=== PATIENT | female | born 1970 | race Caucasian/White ===

== ENCOUNTER → 2021-01-10 | Outpatient (CLI) | payer OTHER ==
[~2021-01-10] MED LIST: CYCL10TA9 PO; ESTROGEN GEL; MILN50TA6 PO; MTP25TSR PO; ZLP10T PO
== END ==
LOC: GIR 16:19
PROVIDERS: ATTEND Family Medicine
DX: Z01.89 Encounter for other specified special examinations (principal)
CPT/HCPCS: 84132

== ENCOUNTER 2021-04-19 19:27 | Emergency (ER) | payer BC, OTHER ==
[~2021-04-19] VITALS: Ht 160 cm; Wt 65.8 kg
--- NOTE | 2021-04-19 20:30 | ED Trauma-Multisystem ---
General Chief Complaint: Trauma-Non Activation Stated Complaint: HEAD INJURY Nursing Triage Note: PT FELL ONTO CONCRETE WHILE PLAYING WITH GRANDKIDS HITTING THE LEFT SIDE OF HEAD. Source of Information: Patient Exam Limitations: No Limitations History of Present Illness Date Seen by Provider: Apr 19, 2021 Time Seen by Provider: 19:33 Initial Comments 50-year-old female presents after a fall and head injury. Having difficulty speaking, stuttering and difficulty answering questions initially. No external bleeding, laceration and no obvious head or facial injury. Brought to ER by her who states she tripped and fell on a concrete slab tumbling and hitting her head. No loss of consciousness, dazed afterwards and he brought her to the ER where she was brought inside using a wheelchair. NO complaint of extremity pain, but states her tailbone is hurting. Allergies and Home Medications Allergies Coded Allergies: Codeine (Verified Allergy, Mild, 12/30/11) Egg (Verified Allergy, Mild, 12/30/11) Penicillins (Verified Allergy, Mild, 12/30/11) Uncoded Allergies: MUSHROOMS (Allergy, Mild, 12/30/11) Home Medications Cyclobenzaprine Hcl 10 Mg Tablet, 1 EACH PO Q8HR PRN FOR MUSCLE SPASMS Prescribed by: ERNESTINA APODACA on 12/30/11 1218 Metoprolol Succinate 25 Mg Tab.sr.24h, 1 EACH PO BID, (Reported) Milnacipran Hcl 50 Mg Tablet, 50 MG PO BID, (Reported) Zolpidem Tartrate 10 Mg Tab, 10 MG PO HS, (Reported) [Estrogen Gel] , 2 DAILY, (Reported) Patient Home Medication List Home Medication List Reviewed: Yes Review of Systems Review of Systems Constitutional: No chills, No dizziness, No fever; malaise Eyes: Denies Blindness, Denies Blurred Vision, Denies Inflammation, Denies Pain; Photophobia; Denies Vision Changes Ears: No Symptoms Reported Nose: No Symptoms Reported Mouth: No Symptoms Reported Throat: No Symptoms to Report Respiratory: No cough, No short of breath Cardiovascular: Denies Chest Pain, Denies Edema, Denies Irregular Heart Rate, Denies Syncope Gastrointestinal: No abdominal pain, No nausea, No vomiting Musculoskeletal: No back pain, No joint pain, No joint swelling, No muscle stiffness, No neck pain Skin: No change in color, No rash Psychiatric/Neurological: See HPI; Denies Anxiety, Denies Depressed; Headache; Denies Numbness, Denies Tingling, Denies Tonic Clonic Seizures, Denies Unable to Move Lower Ext, Denies Unable to Move Upper Ext, Denies Weakness Past Mtjdogq-Unjxhy-Spogyf Hx Past Med/Social Hx: Reviewed Nursing Past Med/Soc Hx Patient Social History Alcohol Use: Denies Use Smoking Status: Never a Smoker 2nd Hand Smoke Exposure: No Recent Infectious Disease Expo: No Recent Hopitalizations: No Seasonal Allergies Seasonal Allergies: Yes Past Medical History Surgeries: Yes Appendectomy, Section, Hysterectomy Respiratory: No Cardiac: No Neurological: Yes Seizure Disorder, Traumatic Brain Injury Genitourinary: No Gastrointestinal: Yes (GASTROPARESIS) Ulcer Musculoskeletal: Yes Fibromyalgia, Back Injury, Fractures Endocrine: No HEENT: Yes ("EXTREME DRY EYES, MOUTH, SKIN") Cancer: No Psychosocial: Yes Anxiety, Depression Integumentary: No Blood Disorders: No Physical Exam Vital Signs Vital Signs - First Documented 04/19/21 04/19/21 19:38 21:07 Temp 36.6 Pulse 75 Resp 22 B/P (MAP) 130/84 (99) Pulse Ox 97 O2 Delivery Room Air Height, Weight, BMI Height: '" Weight: lbs. oz. kg; 25.00 BMI Method:Stated General Appearance: WD/WN, Anxious Head: No Evidence of Injury, Tenderness (left frontal); No Active Bleeding, No Fleming's Sign, No Contusions, No Ecchymosis, No Lacerations, No Raccoon Eyes, No Swelling Eyes: Bilateral Eye Normal Inspection, Bilateral Eye PERRL, Bilateral Eye EOMI Ears, Nose, Throat: Hearing Grossly Normal, No Evidence of ENT Injury, No Dental Injury Neck: Full Range of Motion, Normal Inspection, Non Tender, Supple Cardiovascular: Regular Rate, Rhythm, No Edema, No JVD Respiratory: Chest Non Tender, Lungs Clear, Normal Breath Sounds, No Accessory Muscle Use Gastrointestinal: Normal Bowel Sounds, No Pulsatile Mass, Non Tender, Soft Back: Normal Inspection, No CVA Tenderness, No Vertebral Tenderness Extremity: Normal Capillary Refill, Normal Range of Motion, Non Tender Neurologic/Psychiatric: Alert, Oriented x3, No Motor/Sensory Deficits, cma II- XII Norm as Tested Skin: Normal Color, Warm/Dry Progress/Results/Core Measures Results/Orders My Orders Orders - ROVENSTINE,TIAGO L DO Ct Head Wo (04/19/21 19:51) Vital Signs/I&O 04/19/21 04/19/21 19:38 21:07 Temp 36.6 Pulse 75 78 Resp 22 17 B/P (MAP) 130/84 (99) 127/76 Pulse Ox 97 O2 Delivery Room Air Room Air Blood Pressure Mean: 99 Diagnostic Imaging Diagonstic Imaging: CT Comments EXAMINATION: CT brain without contrast, 04/19/2021. All CT scans use one or more of the following dose optimizing techniques: automated exposure control, MA and/or KvP adjustment based on patient size and exam type or iterative reconstruction. FINDINGS: There is a small linear hyperdensity within the extra-axial aspect of the left frontal parietal region which could represent a small subdural hematoma. No mass effect or midline shift. Within the right frontal parietal lobe, on image #16 of 32, there is a punctate hyperdensity which could represent a small intraparenchymal hemorrhage. No acute infarct. No hydrocephalus. No mass, mass effect or midline shift. No calvarial fracture. Paranasal sinuses and mastoid air cells are unremarkable. IMPRESSION: Possible small left subdural hematoma, as above, with a punctate questioned intraparenchymal hemorrhage in the right frontal parietal region. 24 hour follow-up recommended for reevaluation. Findings called to to the Emergency Room physician by Dr. Lowry on 04/19/2021 at 8:26 p.m. Dictated on workstation # [id number] Dict: 04/19/212018 Trans: 04/19/212030 [facility] [id number] Interpreted by: IVAN LOWRY MD Electronically signed by: Departure Impression Primary Impression: Subdural hematoma, acute Additional Impression: Closed head injury Qualified Codes: S09.90XA - Unspecified injury of head, initial encounter Disposition: 02 XFER SHT-TRM HOSP Condition: Stable Transfer Transfer Reason: Exceeds level of care Time Spoke to Accepting Phy: 20:35 Transfer Progress Notes called [facility]- spoke to Dr Elmo Bradley who accepts for ER - ER transfer Departure-Patient Inst. Referrals: NO,LOCAL PHYSICIAN (PCP/Family) Primary Care Physician TIAGO ZUÑIGA DO Apr 19, 2021 20:30
[2021-04-19 21:07] VITALS: BP 127/76
== END 2021-04-19 21:06 | disposition short-term general hospital (02) ==
LOC: EDUNIT# 19:27 → ER FS 19:30
DX: S09.90XA Unspecified injury of head, initial encounter (principal); Z87.820 Personal history of traumatic brain injury; W01.198A Fall on same level from slipping, tripping and stumbling with subsequent striking against other object, initial encounter
CPT/HCPCS: 70450

== ENCOUNTER 2022-07-25 05:25 | Emergency (ER) | payer BC ==
[~2022-07-25] VITALS: Ht 160 cm; Wt 74.8 kg
[2022-07-25 05:35] VITALS: BP 120/81
[2022-07-25] MEDS ORDERED: AZIT250T12 PO (05:47)
--- NOTE | 2022-07-25 05:48 | ED EENT ---
History of Present Illness General Stated Complaint: LEFT EAR PAIN Source: patient Exam Limitations: no limitations History of Present Illness Date Seen by Provider: Jul 25, 2022 Time Seen by Provider: 05:30 Initial Comments 51-year-old female with past medical history most notable for chronic pain, fibromyalgia, gastroparesis coming in due to left ear pain. It has been going on and for like its been stuffed up for the past couple of days. Pain started really last night which is severe, stabbing, constant, nothing really seems to make it better or worse. Took one of her hydrocodone 10 mg about an hour prior to arrival. Denies any fever, nausea, vomiting, diarrhea, weakness, numbness, vision changes, voice changes, difficulty swallowing, or any other concerns Allergies and Home Medications Allergies Coded Allergies: Codeine (Verified Allergy, Mild, 12/30/11) Egg (Verified Allergy, Mild, 12/30/11) Penicillins (Verified Allergy, Mild, 12/30/11) Uncoded Allergies: MUSHROOMS (Allergy, Mild, 12/30/11) Patient Home Medication List Home Medication List Reviewed: Yes Azithromycin (Azithromycin) 250 Mg Tablet, 250 MG PO UD Prescribed by: MONY BEST on 07/25/22 0547 Cyclobenzaprine Hcl (Cyclobenzaprine Hcl) 10 Mg Tablet, 1 EACH PO Q8HR PRN Prescribed by: ERNESTINA APODACA on 12/30/11 1218 Metoprolol Succinate (Toprol Xl 25MG) 25 Mg Tab.sr.24h, 1 EACH PO BID, (Reported) Entered as Reported by: PEDRO PABLO WOODWARD on 12/30/11 1108 Milnacipran Hcl (Savella) 50 Mg Tablet, 50 MG PO BID, (Reported) Entered as Reported by: PEDRO PABLO WOODWARD on 12/30/11 1108 Zolpidem Tartrate (Ambien 10 Mg) 10 Mg Tab, 10 MG PO HS, (Reported) Entered as Reported by: PEDRO PABLO WOODWARD on 12/30/11 110 [Estrogen Gel] , 2 DAILY, (Reported) Entered as Reported by: PEDRO PABLO WOODWARD on 12/30/11 1108 Review of Systems Review of Systems Constitutional: No fever Eyes: No Symptoms Reported Ears: See HPI Nose: no symptoms reported Mouth: no symptoms reported Throat: no symptoms reported Respiratory: no symptoms reported Cardiovascular: no symptoms reported Gastrointestinal: no symptoms reported Musculoskeletal: no symptoms reported Skin: no symptoms reported Neurological: No Symptoms Reported Hematologic/Lymphatic: No Symptoms Reported Immunological/Allergic: no symptoms reported All Other Systems Reviewed Negative Unless Noted: Yes Past Zhprlea-Ejflmq-Oxbiyq Hx Patient Social History Tobacco Use?: No Substance use?: No Alcohol Use?: No Seasonal Allergies Seasonal Allergies: Yes Past Medical History Surgeries: Yes Appendectomy, Section, Hysterectomy Respiratory: No Cardiac: No Neurological: Yes Seizure Disorder, Traumatic Brain Injury Genitourinary: No Gastrointestinal: Yes (GASTROPARESIS) Ulcer Musculoskeletal: Yes Fibromyalgia, Back Injury, Fractures Endocrine: No HEENT: Yes ("EXTREME DRY EYES, MOUTH, SKIN") Cancer: No Psychosocial: Yes Anxiety, Depression Integumentary: No Blood Disorders: No Physical Exam Height, Weight, BMI Height: '" Weight: lbs. oz. kg; 25.00 BMI Method:Stated General Appearance: WD/WN, no apparent distress Eyes: bilateral eye normal inspection Ears: right ear TM normal; left ear TM dull, left ear TM red, left ear TM bulging; bilateral ear auricle normal, bilateral ear canal normal Nose: normal inspection Mouth/Throat: normal mouth inspection, pharynx normal Neck: non-tender, full range of motion, supple, normal inspection Cardiovascular: regular rate, rhythm, no edema, no murmur Respiratory: chest non-tender, lungs clear, normal breath sounds, no respirator y distress, no accessory muscle use Gastrointestinal: normal bowel sounds, non tender, soft; No distended, No guarding, No rebound Neurologic/Psychiatric: no motor/sensory deficits, alert, normal mood/affect Skin: normal color, warm/dry Progress/Results/Core Measures Progress Progress Note : Progress Note 51-year-old female with above history coming in due to left ear pain. Left tympanic membrane appears dull, red, bulging. Likely is acute otitis media. Given her age is possibly viral, but given the severe pain will trial antibiotics. The patient states she is essentially "allergic to all antibiotics but a Z-Vamsi". Departure Impression Primary Impression: Otitis media Qualified Codes: H66.005 - Acute suppurative otitis media without spontaneous rupture of ear drum, recurrent, left ear Disposition: 01 HOME, SELF-CARE Condition: Stable Departure-Patient Inst. Decision time for Depature: 05:45 Referrals: NO,LOCAL PHYSICIAN (PCP/Family) Primary Care Physician Patient Instructions: Ear Infection ED Add. Discharge Instructions: You will be on antibiotics for the next week. Follow-up with your regular doctor in [place] if things are not improving after the next couple of days Scripts Azithromycin (Azithromycin) 250 Mg Tablet 250 MG PO UD, #6 TAB TAKE 2 TABLETS ON DAY ONE THEN TAKE 1 TABLET DAILY FOR FOUR MORE DAYS Prov: MONY BEST MD 07/25/22 MONY BEST MD Jul 25, 2022 05:48
== END 2022-07-25 05:50 | disposition home or self-care (01) ==
LOC: EDUNIT# 05:25 → ER FS 05:28
DX: H66.92 Otitis media, unspecified, left ear (principal); Z28.310 Unvaccinated for COVID-19
CPT/HCPCS: 99283

== ENCOUNTER 2022-09-24 03:35 | Emergency (ER) | payer BC ==
[~2022-09-24] VITALS: Ht 160 cm; Wt 74.9 kg
[~2022-09-24 03:35] MED LIST changes: +AZIT250T12 PO
--- NOTE | 2022-09-24 03:42 | ED General ---
General Stated Complaint: BODY ACHES History of Present Illness Date Seen by Provider: Sep 24, 2022 Time Seen by Provider: 03:42 Initial Comments 51-year-old female presents with generalized body aches. Patient has a history of "fibromyalgia" she reports that since yesterday around 9 she is just had all over body aches and gets to where she just hurts everywhere. Patient reports that anywhere you touch her hurts. That hurts so bad that her "legs just do not want to move" patient denies any fever, chills, vomiting, diarrhea, cough. Allergies and Home Medications Allergies Coded Allergies: Penicillins (Verified Allergy, Mild, 12/30/11) codeine (Verified Allergy, Mild, 12/30/11) egg (Verified Allergy, Mild, 12/30/11) NSAIDS (Non-Steroidal Anti-Inflamma (Unverified Adverse Reaction, Unknown, 09/24/22) Reports gastroparesis and cannot take morphine (Unverified Adverse Reaction, Unknown, Headache, 09/24/22) Patient reports Morphine intensifies all her headaches Uncoded Allergies: MUSHROOMS (Allergy, Mild, 12/30/11) Patient Home Medication List Home Medication List Reviewed: Yes Buspirone HCl (Buspirone HCl) 10 Mg Tablet, 20 MG PO BID, (Reported) Entered as Reported by: KARRI JAMES on 09/24/22432 Last Action: New Order Celecoxib (Celecoxib) 200 Mg Capsule, 200 MG PO DAILY, (Reported) Entered as Reported by: KARRI JAMES on 09/24/22432 Last Action: New Order Dextroamphetamine/Amphetamine (Amphetamine Salts 20 mg Tablet) 20 Mg Tablet, (Reported) Entered as Reported by: KARRI JAMES on 09/24/22432 Last Action: New Order Duloxetine HCl (Duloxetine HCl) 60 Mg Capsule.dr, 120 MG PO DAILY, (Reported) Entered as Reported by: KARRI JAMES on 09/24/22432 Last Action: New Order Hydrocodone/Acetaminophen (Hydrocodone-Acetamin 10-325 mg) 10 Mg-325 Mg Tablet, 1 TAB PO BID, (Reported) Entered as Reported by: KARRI JAMES on 09/24/22432 Last Action: New Order Potassium Chloride (Potassium Chloride) 10 Meq Tab.er.prt, 10 MEQ PO DAILY, (Reported) Entered as Reported by: KARRI JAMES on 09/24/22432 Last Action: New Order Prazosin HCl (Prazosin HCl) 2 Mg Capsule, 4 MG PO HS, (Reported) Entered as Reported by: KARRI JAMES on 09/24/22432 Last Action: New Order Spironolactone (Aldactone) 100 Mg Tablet, 100 MG PO DAILY, (Reported) Entered as Reported by: KARRI JAMES on 09/24/22432 Last Action: New Order Trazodone HCl (Trazodone HCl) 50 Mg Tablet, 50-100 MG PO HS, (Reported) Entered as Reported by: KARRI JAMES on 09/24/22432 Last Action: New Order Discontinued Medications Azithromycin (Azithromycin) 250 Mg Tablet, 250 MG PO UD Discontinued Reason: Referral/FU Appt-Addtl Prescribed by: MONY BEST on 07/25/22546 Last Action: Discontinued Cyclobenzaprine Hcl (Cyclobenzaprine Hcl) 10 Mg Tablet, 1 EACH PO Q8HR PRN Discontinued Reason: Referral/FU Appt-Addtl Prescribed by: ERNESTINA APODACA on 12/30/111217 Last Action: Discontinued Metoprolol Succinate (Toprol Xl 25MG) 25 Mg Tab.sr.24h, 1 EACH PO BID, (Reported) Discontinued Reason: Referral/FU Appt-Addtl Entered as Reported by: PEDRO PABLO WOODWARD on 12/30/111107 Last Action: Discontinued Milnacipran Hcl (Savella) 50 Mg Tablet, 50 MG PO BID, (Reported) Discontinued Reason: Referral/FU Appt-Addtl Entered as Reported by: PEDRO PABLO WOODWARD on 12/30/111107 Last Action: Discontinued Zolpidem Tartrate (Ambien 10 Mg) 10 Mg Tab, 10 MG PO HS, (Reported) Discontinued Reason: Referral/FU Appt-Addtl Entered as Reported by: PEDRO PABLO WOODWARD on 12/30/111108 Last Action: Discontinued [Estrogen Gel] , 2 DAILY, (Reported) Discontinued Reason: Referral/FU Appt-Addtl Entered as Reported by: PEDRO PABLO WOODWARD on 12/30/111107 Last Action: Discontinued Review of Systems Review of Systems Constitutional: see HPI; No chills, No fever; malaise EENTM: no symptoms reported Respiratory: no symptoms reported Cardiovascular: no symptoms reported Gastrointestinal: no symptoms reported Genitourinary: no symptoms reported Musculoskeletal: see HPI Skin: no symptoms reported Psychiatric/Neurological: No Symptoms Reported Past Dxtdnii-Xzvkof-Jqdeyo Hx Seasonal Allergies Seasonal Allergies: Yes Past Medical History Surgeries: Yes Appendectomy, Section, Hysterectomy Respiratory: No Cardiac: No Neurological: Yes Seizure Disorder, Traumatic Brain Injury Genitourinary: No Gastrointestinal: Yes (GASTROPARESIS) Ulcer Musculoskeletal: Yes Fibromyalgia, Back Injury, Fractures Endocrine: No HEENT: Yes ("EXTREME DRY EYES, MOUTH, SKIN") Cancer: No Psychosocial: Yes Anxiety, Depression Integumentary: No Blood Disorders: No Physical Exam Vital Signs Vital Signs - First Documented 09/24/22 03:40 Temp 37.4 Pulse 99 Resp 20 B/P (MAP) 106/73 (84) Pulse Ox 99 O2 Delivery Room Air Capillary Refill : Height, Weight, BMI Height: '" Weight: lbs. oz. kg; 29.00 BMI Method:Stated General Appearance: No Apparent Distress, Other (Patient complains of tenderness anywhere that she is touched.) HEENT: PERRL/EOMI, Moist Mucous Membranes Neck: Non Tender, Supple Respiratory: Lungs Clear, Normal Breath Sounds Cardiovascular: Regular Rate, Rhythm, No Edema Gastrointestinal: Soft Extremity: Normal Capillary Refill, Normal Range of Motion Neurologic/Psychiatric: Alert, rehab trainer II-XII Norm as Tested Skin: Normal Color, Warm/Dry Progress/Results/Core Measures Suspected Sepsis SIRS Temperature: Pulse: Respiratory Rate: Laboratory Tests 09/24/22 03:41: White Blood Count 8.9 Blood Pressure / Mean: Laboratory Tests 09/24/22 03:41: Creatinine 0.94, Platelet Count 314, Total Bilirubin 0.7 Results/Orders Lab Results Laboratory Tests Test 09/24/22 03:41 09/24/22 03:52 09/24/22 04:50 Range/Units White Blood Count 8.9 4.3-11.0 10^3/uL Red Blood Count 4.14 3.80-5.11 10^6/uL Hemoglobin 12.2 11.5-16.0 g/dL Hematocrit 37 35-52 % Mean Corpuscular Volume 88 80-99 fL Mean Corpuscular Hemoglobin 30 25-34 pg Mean Corpuscular Hemoglobin Concent 33 32-36 g/dL Red Cell Distribution Width 12.7 10.0-14.5 % Platelet Count 314 130-400 10^3/uL Mean Platelet Volume 9.0 9.0-12.2 fL Immature Granulocyte % (Auto) 0 % Neutrophils (%) (Auto) 82 H 42-75 % Lymphocytes (%) (Auto) 12 12-44 % Monocytes (%) (Auto) 5 0-12 % Eosinophils (%) (Auto) 0 0-10 % Basophils (%) (Auto) 0 0-10 % Neutrophils # (Auto) 7.3 1.8-7.8 10^3/uL Lymphocytes # (Auto) 1.1 1.0-4.0 10^3/uL Monocytes # (Auto) 0.4 0.0-1.0 10^3/uL Eosinophils # (Auto) 0.0 0.0-0.3 10^3/uL Basophils # (Auto) 0.0 0.0-0.1 10^3/uL Immature Granulocyte # (Auto) 0.0 0.0-0.1 10^3/uL Sodium Level 135 135-145 MMOL/L Potassium Level 4.4 3.6-5.0 MMOL/L Chloride Level 97 L 98-107 MMOL/L Carbon Dioxide Level 23 21-32 MMOL/L Anion Gap 15 H 5-14 MMOL/L Blood Urea Nitrogen 32 H 7-18 MG/DL Creatinine 0.94 0.60-1.30 MG/DL Estimat Glomerular Filtration Rate 74 BUN/Creatinine Ratio 34 Glucose Level 102 70-105 MG/DL Calcium Level 8.8 8.5-10.1 MG/DL Corrected Calcium 8.7 8.5-10.1 MG/DL Magnesium Level 2.2 1.6-2.4 MG/DL Total Bilirubin 0.7 0.1-1.0 MG/DL Aspartate Amino Transf (AST/SGOT) 15 5-34 U/L Alanine Aminotransferase (ALT/SGPT) 15 0-55 U/L Alkaline Phosphatase 70 40-136 U/L C-Reactive Protein 5.71 H <0.50 MG/DL Total Protein 6.6 6.4-8.2 GM/DL Albumin 4.1 3.2-4.5 GM/DL Influenza Type A (RT-PCR) Not Detected Not Detecte Influenza Type B (RT-PCR) Not Detected Not Detecte SARS-CoV-2 RNA (RT-PCR) Not Detected Not Detecte Urine Color YELLOW Urine Clarity SL CLOUDY Urine pH 6.0 5-9 Urine Specific Browning 1.020 1.016-1.022 Urine Protein NEGATIVE NEGATIVE Urine Glucose (UA) NEGATIVE NEGATIVE Urine Ketones NEGATIVE NEGATIVE Urine Nitrite NEGATIVE NEGATIVE Urine Bilirubin NEGATIVE NEGATIVE Urine Urobilinogen 0.2 < = 1.0 MG/DL Urine Leukocyte Esterase NEGATIVE NEGATIVE Urine RBC (Auto) NEGATIVE NEGATIVE Urine RBC 0-2 /HPF Urine WBC 0-2 /HPF Urine Squamous Epithelial Cells 5-10 /HPF Urine Crystals PRESENT H /LPF Urine Amorphous Sediment FEW KATIE URATES H /LPF Urine Bacteria FEW H /HPF Urine Casts PRESENT /LPF Urine Hyaline Casts 0-2 H /LPF Urine Mucus LARGE H /LPF Urine Culture Indicated NO Urine Opiates Screen POSITIVE H NEGATIVE Urine Oxycodone Screen NEGATIVE NEGATIVE Urine Methadone Screen NEGATIVE NEGATIVE Urine Propoxyphene Screen NEGATIVE NEGATIVE Urine Barbiturates Screen NEGATIVE NEGATIVE Ur Tricyclic Antidepressants Screen NEGATIVE NEGATIVE Urine Phencyclidine Screen NEGATIVE NEGATIVE Urine Amphetamines Screen POSITIVE H NEGATIVE Urine Methamphetamines Screen NEGATIVE NEGATIVE Urine Benzodiazepines Screen NEGATIVE NEGATIVE Urine Cocaine Screen NEGATIVE NEGATIVE Urine Cannabinoids Screen NEGATIVE NEGATIVE My Orders Orders - HUBBARD,PADMA L DO Cbc With Automated Diff (09/24/22 03:46) Comprehensive Metabolic Panel (09/24/22 03:46) Drug Screen Stat (Urine) (09/24/22 03:46) Magnesium (09/24/22 03:46) Ua Culture If Indicated (09/24/22 03:46) Influenza A And B By Pcr (09/24/22 03:46) Crp Fs (09/24/22 03:46) Covid 19 Inhouse Test (09/24/22 03:46) Lactated Ringers (Lr 1000 Ml Iv Solution (09/24/22 03:46) Ketorolac Injection (Toradol Injection) (09/24/22 03:46) Orphenadrine Inj (Ed Only) (Norflex Inje (09/24/22 03:46) Dexamethasone Injection (Decadron Inje (09/24/22 05:30) Medications Given in ED Current Medications Medications Dose Ordered Sig/Nita Route Start Time Stop Time Status Last Admin Dose Admin Dexamethasone Sodium Phosphate 10 mg ONCE ONCE IM 12/2/22 05:30 09/24/22 05:31 DC 09/24/22 05:46 10 MG Vital Signs/I&O 09/24/22 09/24/22 09/24/22 03:40 03:56 05:54 Temp 37.4 37.4 37.2 Pulse 99 84 Resp 20 20 B/P (MAP) 106/73 (84) 101/58 Pulse Ox 99 99 O2 Delivery Room Air Room Air Capillary Refill : Progress Note : Progress Note Patient with likely viral syndrome with elevated CRP. Patient was resting comfortably. Patient stable and discharged Departure Impression Primary Impression: Viral syndrome Disposition: HOME, SELF-CARE Condition: Stable Departure-Patient Inst. Referrals: NO,LOCAL PHYSICIAN (PCP/Family) Primary Care Physician Patient Instructions: Viral Syndrome (DC) Add. Discharge Instructions: 600 mg ibuprofen every 4 hours in addition to your current medications, follow- up with your primary care provider as needed, drink plenty of fluid PADMA HUBBARD DO Sep 24, 2022 03:42
[2022-09-24] MEDS ORDERED: KETOROLAC 30 MG/ML VIAL IVP STA (03:46)
[2022-09-24] MEDS ORDERED: LACTATED RINGERS 1,000 ML IV STA (03:46)
[2022-09-24] MEDS ORDERED: ORPHENADRINE 60 MG/2 ML (NORFLEX) AMP (ED ONLY) IV STA (03:46)
[2022-09-24 03:55] LABS: BASOPHILS % (AUTO) 0 % (0-10); EOSINOPHILS % (AUTO) 0 % (0-10); HEMATOCRIT 37 % (35-52); HEMOGLOBIN 12.2 g/dL (11.5-16.0); LYMPHOCYTES # (AUTO) 1.1 10^3/uL (1.0-4.0); LYMPHOCYTES % (AUTO) 12 % (12-44); MEAN CORPUSCULAR HEMOGLOBIN 30 pg (25-34); MEAN CORPUSCULAR HGB CONC 33 g/dL (32-36); MEAN CORPUSCULAR VOLUME 88 fL (80-99); MONOCYTES # (AUTO) 0.4 10^3/uL (0.0-1.0); MONOCYTES % (AUTO) 5 % (0-12); NEUTROPHILS # (AUTO) 7.3 10^3/uL (1.8-7.8); NEUTROPHILS % (AUTO) 82 % (42-75); PLATELET COUNT 314 10^3/uL (130-400); WHITE BLOOD COUNT 8.9 10^3/uL (4.3-11.0)
[2022-09-24 04:10] LABS: ALBUMIN 4.1 GM/DL (3.2-4.5); BILIRUBIN,TOTAL 0.7 MG/DL (0.1-1.0); CALCIUM 8.8 MG/DL (8.5-10.1); CREATININE SERUM 0.94 MG/DL (0.60-1.30); MAGNESIUM 2.2 MG/DL (1.6-2.4); POTASSIUM 4.4 MMOL/L (3.6-5.0); TOTAL PROTEIN 6.6 GM/DL (6.4-8.2)
[2022-09-24] MEDS ORDERED: DULO60CA59 PO (04:33)
[2022-09-24] MEDS ORDERED: PRAZ2CAP2 PO (04:33)
[2022-09-24] MEDS ORDERED: TRZ50T PO (04:33)
[2022-09-24] MEDS ORDERED: SPIR100T PO (04:33)
[2022-09-24] MEDS ORDERED: HYDR-3820 PO (04:33)
[2022-09-24] MEDS ORDERED: CELE-63 PO (04:33)
[2022-09-24] MEDS ORDERED: POTA-177 PO (04:33)
[2022-09-24] MEDS ORDERED: BUSP10TA95 PO (04:33)
[2022-09-24] MEDS ORDERED: DEXT20TA8 (04:33)
[2022-09-24 04:57] LABS: BILIRUBIN,URINE NEGATIVE (NEGATIVE); CLARITY,URINE SL CLOUDY; COLOR,URINE YELLOW; GLUCOSE, URINE (UA) NEGATIVE (NEGATIVE); KETONES,URINE NEGATIVE (NEGATIVE); LEUKOCYTE ESTERASE ,URINE NEGATIVE (NEGATIVE); NITRITE,URINE NEGATIVE (NEGATIVE); PROTEIN,URINE NEGATIVE (NEGATIVE)
[2022-09-24 05:05] LABS: BACTERIA,URINE FEW /HPF; RBC,URINE 0-2 /HPF; WBC,URINE 0-2 /HPF
[2022-09-24 05:06] LABS: AMORPHOUS SEDIMENT,UR FEW AMOR URATES /LPF; HYALINE CASTS, URINE 0-2 /LPF
[2022-09-24 05:09] LABS: AMPHETAMINE SCREEN, URINE POSITIVE (NEGATIVE); BARBITURATE SCREEN URINE NEGATIVE (NEGATIVE); BENZODIAZEPINES SCREEN URINE NEGATIVE (NEGATIVE); CANNABINOID SCREEN, URINE NEGATIVE (NEGATIVE); COCAINE SCREEN URINE NEGATIVE (NEGATIVE); METHADONE STAT NEGATIVE (NEGATIVE); OPIATE SCREEN URINE POSITIVE (NEGATIVE); OXYCODONE STAT NEGATIVE (NEGATIVE); PROPOXYPHENE STAT NEGATIVE (NEGATIVE); TRICYCLIC ANTIDEPRESSANTS SCRE NEGATIVE (NEGATIVE)
[2022-09-24 05:54] VITALS: BP 101/58
== END 2022-09-24 05:54 | disposition home or self-care (01) ==
LOC: EDUNIT# 03:35 → ER FS 03:37
DX: B34.9 Viral infection, unspecified (principal); R52 Pain, unspecified; Z20.822 Contact with and (suspected) exposure to COVID-19; Z28.310 Unvaccinated for COVID-19
CPT/HCPCS: 36415; 80053; 80306; 81000; 83735; 85025; 86141; 87636